=== PATIENT | female | born 1950 | race Asian ===

== ENCOUNTER 2025-04-04 14:55 | Emergency (ER) | payer MEDICARE, BC, SELFPAY ==
--- OUTSIDE RECORDS SUMMARY | 2025-04-04 14:57 | XMS_ITS | Clinical Summary ---
Author Organization [facility] Address [address] [facility] [place] [address] Care Team Providers Care Dining Manager Name Role Phone No Ref-Primary, Physician Primary Care Provider Allergies Active Allergy Reactions Criticality Noted Date Comments No Clinical Screening - Other Allergy 07/13/2017 Chemical fragrances= sneezing, throat closes Metal causes rashes Medications Zolpidem Tartrate (AMBIEN PO) Take 5 mg by mouth nightly as needed for sleep (0.5 x 10 mg = 5 mg dose) Active Acetaminophen (TYLENOL PO) Take 325 mg by mouth daily as needed for mild pain or fever Active ASPIRIN PO Take 650 mg by mouth nightly as needed for moderate pain Active hydrOXYzine (ATARAX) 10 MG tabletIndicatio ns:Status post left ankle joint replacement Take 1 tablet (10 mg) by mouth every 6 hours as needed for itching 30 tablet 7 Active enoxaparin (LOVENOX) 40 MG/0.4ML injectionIndica tions:Status post left ankle joint replacement Inject 0.4 mLs (40 mg) Subcutaneous every 24 hours 5 Syringe 7 Active ondansetron (ZOFRAN-ODT) 4 MG ODT tabIndications: Status post left ankle joint replacement Take 1 tablet (4 mg) by mouth every 6 hours as needed for nausea or vomiting 15 tablet 7 Active senna-docusate (SENOKOT-S;BUDDY COLACE) 8.6-50 MG per tabletIndicatio ns:Status post left ankle joint replacement Take 1-2 tablets by mouth 2 times daily 40 tablet 7 Active oxyCODONE-aceta minophen (PERCOCET) 5-325 MG per tabletIndicatio ns:Status post left ankle joint replacement Take 1-2 tablets by mouth every 4 hours as needed 40 tablet 7 Active Active Problems Problem Noted Date Diagnosed Date 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 Resolved Problems Problem Noted Date Diagnosed Date Resolved Date BEULAH JOINT PAIN-LOWER LEG 05/08/2005 Social History Tobacco Use Types Packs/Day Years Used Date Smoking Tobacco: Never Smokeless Tobacco: Never Alcohol Use Standard Drinks/Week Comments No 0 (1 standard drink = 0.6 oz pur e alcohol) Comments No Sex and Gender Information Value Date Recorded Sex Assigned at Not on file Legal Sex Female 4:39 AM STAINLESS STEEL FINISHER Gender Identity Not on file Sexual Orientation Not on file Last Filed Vital Signs Vital Sign Reading Time Taken Comments Blood Pressure 110/71 07/14/2017 7:30 AM STAINLESS STEEL FINISHER Pulse 67 07/13/2017 7:05 PM STAINLESS STEEL FINISHER Temperature 36.8 C (98.3 F) 07/14/2017 7:30 AM STAINLESS STEEL FINISHER Respiratory Rate 16 07/14/2017 7:30 AM STAINLESS STEEL FINISHER Oxygen Saturation 92% 07/14/2017 7:30 AM STAINLESS STEEL FINISHER Inhaled Oxygen Concentration - - Weight 65.2 kg (143 lb 12.8 oz) 07/13/2017 7:45 AM STAINLESS STEEL FINISHER Height 154.9 cm (5' 1) 07/13/2017 7:45 AM STAINLESS STEEL FINISHER Body Mass Index 27.17 07/13/2017 7:45 AM STAINLESS STEEL FINISHER Plan of Treatment Not on file Medical Devices Implanted Type Area Transaction Coordinator Device Identifier Shelf Expiration Date Model / Serial / Lot Imp Comp Tornier Talar Ankle Size 1 Lt [id number] Implanted:Qty: 1 on 07/13/2017 by Efra Encinas MD at [facility] [employer] Joint Component/ Insert Left: Ankle [employer] 12/16/2020 [id number] / [id number] / Imp Insert Tornier Tibial Ankle Base Size 1 [id number] Implanted:Qty: 1 on 07/13/2017 by Efra Encinas MD at [facility] [employer]/ Insert Left: Ankle [employer] 06/25/2021 [id number] / [id number] / Imp Insert Tornier Tibial Ankle Size 1x8mm Lt [id number] Implanted:Qty: 1 on 07/13/2017 by Efra Encinas MD at [facility] [employer] Joint Component/ Insert Left: Ankle [employer] 06/25/2019 [id number] / [id number] / [place] [address] [address] [address] MEDICARE MEDICARE Advance Directives For more information, please contact: [phone] Documents on File Type Date Recorded Patient Soil Sampler Expl anation Advance Directives and Living Will 07/31/2017 8:44 AM Health Care Directiv e 07/31/2010 * Full Code (Latest Code Status on File) Date Activated Date Inactivated Comments 07/13/2017 11:11 AM 07/14/2017 2:31 PM Care Teams Dining Manager Relationship Specialty Start Date End Date No Ref-Primary, Physician PCP - General 07/13/17
--- OUTSIDE RECORDS SUMMARY | 2025-04-04 14:57 | XMS_ITS | Clinical Summary ---
Author Organization [facility] Address [address] [place] [address] Care Team Providers Care Retail Support Associate Name Role Phone Other-None Unavailable Unavailable James Tracey Unavailable Sully Mcrae DO Primary Care Provider [phone] Allergies Active Allergy Reactions Criticality Noted Date Comments Bee Venom Protein (Honey Bee) Anaphylaxis High 07/30/2023 Perfume Headache 09/27/2021 Chemical fragrances- headaches and shortness of breath, anaphylaxis Venom-Wasp Anaphylaxis High 07/30/2023 Medications aspirin (ECOTRIN) 81 mg enteric coated tablet Take 1 tablet by mouth once daily with a meal. 0 06/30/20 19 Active inhalational spacing deviceIndications: Mild intermittent reactive airway disease without complication (HC) For home use. 1 Each 02/19/20 21 Active FLUTICASONE PROPIONATE NASL Acti ve EPINEPHrine (EPIPEN) 0.3 mg/0.3 mL auto-injectorIndic ations:Angioedema, sequela INJECT 0.3 MG INTRAMUSCULAR ONE TIME FOR 1 DOSE. 2 Each 08/09/19 25 Active albuterol HFA (Ventolin HFA) 90 mcg/actuation inhalerIndications :Mild intermittent asthma without complication (HC) Inhale 2 Puffs by mouth 4 times daily if needed for Shortness Of Breath. 1 Each 3 08/09/19 25 Active atorvastatin (LIPITOR) 40 mg tabletIndications: Hyperlipidemia, unspecified hyperlipidemia type Take 1 Tablet (40 mg) by mouth at bedtime. 90 Tablet 3 08/09/19 25 Active fexofenadine (DENISHA) 180 mg tabletIndications: Mild persistent asthma without complication (HC) Take 180 mg by mouth once daily. 90 Tablet 3 08/09/19 25 Active fluticasone furoate (ARNUITY ELLIPTA) 200 mcg/actuation inhalerIndications :Mild intermittent asthma without complication (HC) Inhale 1 Puff by mouth once daily. 90 Each 3 08/25/19 25 Active acyclovir 200 mg capsule TAKE 1 CAPSULE (200 MG) BY MOUTH FIVE TIMES A DAY FOR 5 DAYS. 12/07/19 25 Active oxyCODONE 5 mg immediate release tablet TAKE ONE TABLET BY MOUTH EVERY 4-6 HOURS NEEDED FOR BREAKTHROUGH PAIN 12/21/19 25 Active polyethylene glycoL 17 gram/scoop powder MIX 17GMS IN WATER TAKE BY MOUTH DAILY, START ON POD1, HOLD FOR LOOSE STOOLS 12/13/19 25 Active Senna 8.6 mg tablet TAKE ONE TABLET BY MOUTH DAILY TO PREVENT POST-OPERATIVE OPIOID CONSTIPATION 12/21/19 25 Active hydrOXYzine HCL 25 mg tablet TAKE 1 TO 2 TABLETS BY MOUTH EVERY 4 TO 6 HOURS NEEDED FOR PAIN CONTROL 12/29/19 25 Active Mapap 500 mg capsule TAKE 2 CAPS (1000MG) BY MOUTH EVERY SIX HOURS 12/13/19 25 Active cholecalciferol (Vitamin D) 1,000 unit capsule Take 1,000 units by mouth once daily. Active calcium carb,cit-mag cit,ox-D3 300 mg-150 mg- 400 unit tab Take by mouth. Activ e zolpidem (AMBIEN) 5 mg tabletIndications: Insomnia, unspecified type TAKE 1 TABLET (5 MG) BY MOUTH AT BEDTIME IF NEEDED FOR SLEEP. 30 Tablet 2 03/03/20 25 Active Active Problems Problem Noted Date Diagnosed Date Thyroid nodule 04/26/2021 Overview (04/26/2021): Follow up US 03/2021: MPRESSION: 1.8 cm TR 3 nodule lower pole left thyroid lobe. Follow-up at 1, 3 and 5 year intervals suggested. 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 Consider recheck 5 years. Madelin Oliva M.D. 05/02/2014 9:10 PM Colon polyp 06/27/2011 Overview (06/15/2023): Colonoscopy 06/2011 polyp repeat in 5 years Colonoscopy 12/2016 polyps repeat in 5 years Colonoscopy 05/2023 TA, repeat in 7 years Vitamin D deficiency 05/12/2011 Viral warts, unspecified 11/18/2010 Mole of skin 12/21/2009 Overview (12/21/2009): 4x6 pigmented lesion right shoulder Encounters Date Type Department Care Team Description 03/02/2025 Refill [facility] [address] [place] [address] Sulyl Mcrae DO Refill Request (Zolpidem) 01/09/2025 1:45 PM CDT Office Visit [address] [phone] Carolynn Delacruz, PHOTOLETTERING MACHINE OPERATOR Consult 01/09/2025 Travel 01/04/2025 Travel from Last 3 Months Immunizations Immunization Administration Dates Next Due AMB Influenza, IIV4 PF (=>6 mos Flulaval,Fluzone Fluarix)(Flu Clinic Only) 04/20/2014 Amb Influenza, Inact (High-d ose) (Flu Clinic Only) 06/06/2016 COVID-19 VACCINE SPIKEVAX (M ODERNA 50MCG/0.5ML) 12YO+ PFS 11/15/2024 COVID-19 vaccine (Moderna 50 mcg/0.5mL) 12YO+ BIVALENT PF, MDV 04/16/2022 COVID-19 vaccine (Pfizer-Bio NTech 30mcg/0.3mL) PF, MDV 05/15/2021,09/15/2020,08/23/2020 Influenza Virus, Unspecified 05/26/2019 Influenza, High-dose Inactivated 04/25/2024,04/26 Influenza, High-dose Quadriv alent Inactivated 06/03/2023,05/27/2023,05/22/2022,04/17,05/03/2020 Influenza, IIV3 (Age >=3 years) 08/04/2013,05/07,05/09/2011 Influenza, Inactivated IIV3 (Age 65+ Years) Preserv Free 06/11/2018,05/11/2017 Pneumococcal Poly,23-Valent (Pneumovax) 12/10/2016 Pneumococcal conj 13-Valent (Prevnar 13) 10/26/2015 RSV, Recombinant ADJ Reconst ituted (Arexvy 120MCG/0.5mL) 06/03/2023 Tdap 05/03/2020,12/21/2009 Zoster (Shingrix-RZV, recombinant) 06/17/2019, Zoster (Zostavax-ZVL, live) 05/09/2011 Family History Medical History Relation Name Comments Diabetes Brother Hypertension Brother Diabetes Father Heart Disease Father Hypertension Father Other Father meningioma Cancer-breast Mother Hypertension Mother Multiple myeloma Sister Cancer-colon No Family History Cancer-ovarian No Family History Relation Name Status Comments Brother Father (Age 87) Mother (Age 95) Sister Social History Tobacco Use Types Packs/Day Years Used Date Smoking Tobacco: Never Smokeless Tobacco: Never Tobacco Cessation:Counseling Given: Yes Alcohol Use Standard Drinks/Week Comments Yes 0 (1 standard drink = 0.6 oz pur e alcohol) once every few weeks PHQ-2 Answer Date Recorded PHQ-2 TOTAL SCORE 0 08/09/2024 Social Connections Answer Date Recorded Do you often feel lonely or isolated from those around you? 0 08/08/2024 Alcohol Use Answer Date Recorded How often do you have a drink containing alcohol ? 2 06/03/2022 How many drinks containing a lcohol do you have on a typical day when you are drinking? 0 06/03/2022 How often do you have five or more drinks on one occasion? 0 06/03/2022 Financial Resource Strain Answer Date R ecorded Difficulty of Paying Living Expenses 3 08/08/2024 Difficulty of Paying Living Expenses Not on file 08/08/2024 Food Insecurity Answer Date Recorded Do you worry your food will run out before you are able to buy more? 1 08/08/2024 Transportation Needs Answer Date Record ed Does lack of transportation keep you from medica l appointments? 1 08/08/2024 Does lack of transportation keep you from work, meetings or getting things that you need? 1 08/08/2024 Housing Stability Answer Date Recorded What is your housing situation today? 1 08/08/2024 Utilities Answer Date Recorded Do you have trouble paying f or utilities (for example, heat, electricity, water, phone)? 1 08/08/2024 Comments No Sex and Gender Information Value Date Recorded Sex Assigned at Not on file Legal Sex Female 6:11 AM JET BLADE POLISHER Gender Identity Not on file Sexual Orientation Not on file Obstetrics History Para Term AB IAB SAB Ectopic Multiple Livin g Live Births 0 0 0 0 0 0 0 0 0 0 Last Filed Vital Signs Vital Sign Reading Time Taken Comments Blood Pressure 110/60 01/09/2025 1:48 PM CDT Pulse 55 01/09/2025 1:48 PM CDT Temperature 36.6 C (97.9 F) 01/09/2025 1:48 PM CDT Respiratory Rate 18 01/09/2025 1:48 PM CDT Oxygen Saturation 95% 01/09/2025 1:48 PM CDT Inhaled Oxygen Concentration - - Weight 60.2 kg (132 lb 11.2 oz) 11/24/2024 1:08 PM CDT Height 152 cm (4' 11.84) 11/24/2024 1:08 PM CDT Body Mass Index 26.05 11/24/2024 1:08 PM CDT Plan of Treatment Upcoming Encounters Date Type Department Care Team (Late st Contact Info) Description 05/03/2025 10:15 AM CDT Orders Only [facility] [address] [place] [address] [place], [place] 05/17/2025 10:45 AM CDT Office Visit [facility] [address] [place] [address] Carolynn Delacruz, PHOTOLETTERING MACHINE OPERATOR [address] [place] [address] Health Maintenance Due Date Last Done Comments Influenza Vaccine (#1) 2025 4, 05/26/2019, 06/11/2018, Additional history exists Medicare Wellness for age 65+ 08/10/2025 08/09/2024, 07/30/2023, 06/03/2022, Additional history exists Depression screening for age 12+ 08/11/2025 08/11/2024, 08/09/2024, 07/30/2023, Additional history exists BMI (ht and wt on same day) for age 18+ 11/24/2025 11/24/2024, 08/09/2024, 07/30/2023, Additional history exists Lipids for age 45-75 08/09/2029 08/09/2024, 06/03/2022, 10/18/2021, Additional history exists Tetanus booster 05/03/2030 05/03/2020, 12/21/2009 Colonoscopy through age 75 06/11/203006/11, 06/11/2023, 06/11/2023, Additional history exists Hepatitis C screening for age 18-79 Completed 05/03/2014 Pneumococcal series for age 50+ Completed 12/10/2016, 10/26/2015 Zoster (shingles) series for age 50+ Completed 06/17/2019, 12/22/2018, 05/09/2011 DEXA/DXA scan for age 65+ Completed 2021, 12/16/2016, 05/29/2011 RSV vaccine for adults or Completed 06/03/2023 COVID-19 vaccine series Completed 11/16/19, 04/25/2024, 12/24/2023, Additional history exists Hepatitis B series for 19+ Aged Out N o longer eligible based on patient's age to complete this topic Procedures Procedure Name Priority Date/Time Associated Diagnosis Comments LIPID PANEL W REFLEX MEASURED LDL Routine 08/09/2024 9:07 AM JET BLADE POLISHER Hyperlipidemia, unspecified hyperlipidemia type COLONOSCOPY 06/11/2023 8:44 AM JET BLADE POLISHER XR DXA BONE DENSITY 2 SITES AXIAL Routine 07/09/2022 11:01 AM JET BLADE POLISHER Osteopenia, unspecified location Other specified disorders of bone density and structure, multiple sites ANTI HCV Routine 05/03/2014 2:07 PM CDT Need for hepatitis C screening test from Last 3 Months or Most Recently Relevant to Health Maintenance Results * LIPID PANEL W REFLEX MEASURED LDL (08/09/2024 9:07 AM JET BLADE POLISHER) CHOLESTEROL, TOTAL 152 <200 mg/dL [facility] HDL CHOLESTEROL 52 > OR = 50 mg/dL [facility] TRIGLYCERIDES 121 <150 mg/dL [facility] LDL-CHOLESTEROL 78 mg/dL (calc) [facility] Comment: Reference range: <100 Desirable range <100 mg/dL for primary prevention; <70 mg/dL for patients with CHD or diabetic patients with > or = 2 CHD risk factors. LDL-C is now calculated using the Mariah calculation, which is a validated novel method providing better accuracy than the Friedewald equation in the estimation of LDL-C. Watson KATZ et al. CT. 2013;310(19): 1810-1766 (http://education.Layer3 TV/faq/GKA839) CHOL/HDLC RATIO 2.9 <5.0 (calc) [facility] NON HDL CHOLESTEROL 100 <130 mg/dL (calc) [facility] Comment: For patients with diabetes plus 1 major ASCVD risk factor, treating to a non-HDL-C goal of <100 mg/dL (LDL-C of <70 mg/dL) is considered a therapeutic option. Blood BLOOD SPECIMEN / Unknown 08/09/2024 9:07 AM JET BLADE POLISHER 08/09/2024 9:07 AM JET BLADE POLISHER Sully Mcrae DO CHEMISTRY Final Resu lt [facility] [address] [place] [address], [facility] [address] [place] [address] * COLONOSCOPY (06/11/2023 8:44 AM JET BLADE POLISHER) 06/11/2023 8:44 AM JET BLADE POLISHER Narrative Transcriptions Watson Dexter MD - 06/11/2023 9:48 AM CST Patient Name: Bharti Carpio Procedure Date: 06/11/2023 Gender: Female Date of : 1950 Admit Type: Outpatient Procedure: Colonoscopy Proceduralist: Watson Dexter MD , iMndy Kelly (Nurse), Lizzy Higgins (Nurse) Indications/Pre-Op Diagnosis: High risk colon cancer surveillance:Personal history of adenoma less than 10 mm in size, Last colonoscopy: December 2016 Medications: Fentanyl 100 micrograms IV, Midazolam 2 mgIV, The level of sedation administered wasmoderate Procedure Description: The patient had risks, benefits and alternatives explained to andgave informed consent. The patient had a stable cardiopulmonary status and judged an adequate candidate for conscious sedation. The endoscope PCF-H190L [id number] was passed through the anus andadvanced to the cecum, identified by appendiceal orifice and ileocecal valve.The colonoscopy was performed without difficulty. The patient toleratedthe procedure well. The quality of the bowel preparation was good. Anatomical landmarks were photographed. Complications: No immediate complications. Estimated Blood Loss & Specimen: Estimated blood loss: none. Specimen collected - Yes and sent to Laboratory Findings: The perianal and digital rectal examinations were normal. A 2 mm polyp was found in the transverse colon. The polyp wassessile. The polyp was removed with a cold biopsy forceps. Resection and retrieval were complete. A 3 mm polyp was found in the transverse colon. The polyp wassessile. The polyp was removed with a cold snare. Resection and retrieval were complete. Scattered small-mouthed diverticula were found in the sigmoidcolon. The exam was otherwise without abnormality. Impressions/Post-Op Diagnosis: - One 2 mm polyp in the transverse colon, removed with a cold biopsy forceps. Resected and retrieved. - One 3 mm polyp in the transverse colon, removed with a cold snare. Resected and retrieved. - Diverticulosis in the sigmoid colon. - The examination was otherwise normal. Recommendation: - Patient has a contact number available for emergencies. The signsand symptoms of potential delayed complications were discussed with the patient. Return to normal activities tomorrow. Written discharge instructions were provided to the patient. - Resume previous diet. - Continue present medications. - Await pathology results. - Repeat colonoscopy is recommended. The colonoscopy date will be determined after pathology results from today's exam become available for review. Moderate Sedation: A time out was performed before the procedure. Moderate (conscious) sedation was administered by the endoscopy nurse and supervised bythe endoscopist. The following parameters were monitored: oxygensaturation, heart rate, blood pressure, EKG, CO2, respiratory rate, adequacy of pulmonary ventilation and reponse to care. Please refer to the patient's medical record flowsheets and nursing notes for moderate sedation details. Total physician intraservice time was 19 minutes. Watson Dexter MD 06/11/2023 9:47:59 AM This report has been signed electronically. Note Initiated On: 06/11/2023 8:44 AM Procedure Code(s): --- Professional --- 53148, Colonoscopy, flexible; with removalof tumor(s), polyp(s), or other lesion(s) bysnare technique 12007, 59, Colonoscopy, flexible; withbiopsy, single or multiple Diagnosis Code(s): --- Professional --- Z86.010, Personal history of colonicpolyps D12.3, Benign neoplasm of transverse colon (hepatic flexure or splenic flexure) K57.30, Diverticulosis of large intestine without perforation or abscess withoutbleeding CPT copyright 2021 [employer]. All rights reserved. The codes documented in this report are preliminary and upon collection clerk reviewmay be revised to meet current compliance requirements. Scope In: 9:11:44 AM Scope Withdrawal Time 0 hours 13 minutes 9 seconds Scope Out: 9:29:40 AM us Watson Dexter MD PROCEDURE ORD Final Res ult * (ABNORMAL) XR DXA BONE DENSITY 2 SITES AXIAL (07/09/2022 11:01 AM JET BLADE POLISHER) Anatomical Region Laterality Modality Spine, HIPS, HIPL, HIPR Other Impressions 07/09/2022 4:02 PM JET BLADE POLISHER Osteopenia. RECOMMENDATIONS: The National Osteoporosis Foundation recommends pharmacologic treatment for patients with T-scores of -2.5 or less, patients with prior history of fragility fractures, or patients with 10-year probability of greater than 3% at hips or greater than 20% of suffering major osteoporotic fractures. Recommend continued optimization of calcium and vitamin D intake through dietary means and/or supplementation and regular exercise. Repeat scan recommended in 3-5 years. Margaret Giraldo PA-C [facility] 07/09/2022 Narrative 07/09/2022 4:02 PM JET BLADE POLISHER For Patients: Results are automatically released to your [facility] account once available, in compliance with federal regulations. This means that you may see your results before your provider has had a chance to review them. Please allow 2-3 business days for your provider to comment on the results. XR DXA Bone Mineral Density (BMD) EXAM LOCATION: [address] [address] PATIENT NAME: Bharti Carpio DATE OF : 1950 EXAM DATE: 07/09/2022 REQUESTING PROVIDER: Sully Mcrae DO GENDER AT : female HEIGHT: 5' 0.12 (06/03/2022) WEIGHT: 137 lb (06/03/2022) MENOPAUSAL STATUS: Postmenopausal RACE/ETHNICITY: RISK FACTORS: Race and Family History of Osteoporosis CURRENT MEDICATION FOR BONE LOSS: NONE INDICATION: Follow-up of existing osteopenia COMPARISON DATE(S): 2016 DXA scans are compared to prior studies for a patient only when the two (or more) studies were performed on the same scanner. It is not possible to compare data generated on one scanner to data from another because there are not standards in DXA equipment. This applies even if the two scanners are made by the same set rider. PROCEDURE: Dual-energy x-ray absorptiometry performed with routine technique. Reporting is completed in the form of a T-score. The T-score represents the standard deviation from peak bone mass based on young healthy adult. A Z-score is used for diagnosis in premenopausal women, and for men under the age of 50. FINDINGS: RESULT LUMBAR SPINE L1 - L3 BMD: 1.103 g/cm2 T-Score: - 0.6 Z-Score: + 1.2 Change from prior in 2017: Increase 1.5%. RESULTS FEMUR Left femoral neck BMD: 0.776 g/cm2 T-Score: - 1.9 Z-Score: + 0.0 Change from prior in 2017: Decrease 6.1%. Right femoral neck BMD: 0.813 g/cm2 T-Score: - 1.6 Z-Score: + 0.2 Change from prior in 2017: Decrease 4.7%. Left hip BMD: 0.813 g/cm2 T-Score: - 1.5 Z-Score: + 0.1 Change from prior in 2017: Decrease 2.4%. Right hip BMD: 0.870 g/cm2 T-Score: - 1.1 Z-Score: + 0.6 Change from prior in 2017: Decrease 4.2%. WHO criteria: Normal: T-score at or above -1 SD Osteopenia: T-score between -1.1 and -2.4 SD Osteoporosis: T-score at or below -2.5 SD FRAX RISK CALCULATION (USED FOR OSTEOPENIA ONLY): 10-year probability of major osteoporotic fracture: 6.8%. 10-year probability of hip fracture: 1.4%. Sully Mcrae DO DEXA Final Resu lt * ANTI HCV [86470.2] (05/03/2014 2:07 PM CDT) HEPATITIS C ANTIBODY Non-Reacti ve Non-Reacti ve 05/03/2014 8:00 PM CDT [facility] Blood specimen (specimen) BLOOD SPECIMEN / Unknown Venipuncture / Unknown 05/03/2014 2:07 PM CDT 05/03/2014 2:07 PM CDT [facility] 05/03/2014 8:00 PM CDT Antibodies to HCV not detected; does not exclude the possibility of exposure to HCV. Madelin Oliva SEND OUTS Final R esult [facility] [address] [place] [address], [place] from Last 3 Months or Most Recently Relevant to Health Maintenance Insurance MEDICARE PART B HB ONLY [facility] MEDICARE PB ONLY MEDICARE PART A HB ONLY Advance Directives Documents on File Type Date Recorded Patient Marketing Communications Leader Expl anation Healthcare Directive 07/07/2017 12:12 PM [facility], 07/31/10 Healthcare Directive 12/22/2012 11:55 AM [facility], 07/31/2010 Care Teams Retail Support Associate Relationship Specialty Start Date End Date Sully Mcrae DO [address] [place] [address] PCP - General Family Practice 12/10/18 Other-None . 10/26/15 James Tracey [address] [place] [id number] Contract Serviceman 10/26/15
[2025-04-04 15:06] VITALS: BP 120/79; PULSE 65; RESP 18; TEMP 36.4; O2SAT 96; BMI 26.2
--- NOTE | 2025-04-04 15:14 | ED.CHESTPAIN ---
HPI - Chest Pain General Time Seen by Provider: 15:14 <Audra Tao MD - Last Filed: 04/04/25 16:20> Date Seen: 04/04/25 <Audra Tao MD - Last Filed: 04/04/25 16:20> Chief Complaint: Chest Pain <Audra Tao MD - Last Filed: 04/04/25 16:20> Stated Complaint: SOB, jaw pain, chest pain, nausea <Audra Tao MD - Last Filed: 04/04/25 16:20> Time Seen by Provider: 04/04/25 15:14 <Audra Tao MD - Last Filed: 04/04/25 16:20> Source: patient <Audra Tao MD - Last Filed: 04/04/25 16:20> Mode of arrival: ambulatory <Audra Tao MD - Last Filed: 04/04/25 16:20> Limitations: no limitations <Audra Tao MD - Last Filed: 04/04/25 16:20> History of Present Illness HPI narrative: Bharti is a very pleasant 75-year-old female with history of right ankle joint replacement, hyperlipidemia who takes an aspirin a day because of an elevated calcium score comes to the emergency room for after having experienced 20 minutes of persistent chest pain. And notes that 2 days ago she started experiencing some cold symptoms with sneezing and a cough. She notes no shortness of breath with that. She states that she has not yet had a chance to test for COVID but does not know of any ill contacts. She states that while working at home not doing very intense activity she had the onset of upper chest pain that radiated into her jaw and the back of the neck. She states this occurred at approximately 1400 hours. She had experienced some shortness of breath and nausea with this as well as diaphoresis. She notes that she took 4 baby aspirin and sat down. She notes that the discomfort lasted for approximately 20 minutes. She notes that this time she still has some slight pressure in her jaw and a mild headache and that her chest pressure is now a gassy type feeling. She denies any vomiting or diarrhea. She denies any abdominal pain at this time. In the past she had an event where she had significant pain in her back. She underwent a chemical stress test and passed. I do not have access to those notes. She did not see a cell coverer. Patient does have risk factors including hyperlipidemia. An elevated calcium score. She denies history of hypertension she does not smoke and alcohol use is minimal. Bharti also denies calf tenderness, history of DVT, periods of inactivity, extended car rides or recent plane trips. <Audra Tao MD - Last Filed: 04/04/25 16:20> Related Data Home Medications: Home Medications ?Medication ?Instructions ?Recorded ?Confirmed acetaminophen 500 mg capsule mg PO 12/23/24 12/23/24 (Mapap (acetaminophen)) aspirin 81 mg tablet,delayed 81 mg PO BID 12/23/24 12/23/24 release atorvastatin 40 mg tablet 40 mg PO QPM 12/23/24 12/23/24 <Audra Tao MD - Last Filed: 04/04/25 16:20> Allergies/Adverse Reactions: Allergies Allergy/AdvReac Type Severity Reaction Status Date / Time wasps Allergy Mild throat Uncoded 12/23/24 16:19 swelling <Audra Tao MD - Last Filed: 04/04/25 16:20> Review of Systems Status of ROS Reports: 10 or more systems reviewed and unremarkable except as noted in History and below <Audra Tao MD - Last Filed: 04/04/25 16:20> Const Reports: fatigue; Denies: fever or chills <Audra Tao MD - Last Filed: 04/04/25 16:20> Eyes Denies: change in vision <Audra Tao MD - Last Filed: 04/04/25 16:20> ENMT Reports: neck pain (Resolved); Denies: throat pain, nasal discharge or nasal congestion <Audra aTo MD - Last Filed: 04/04/25 16:20> Cardio Reports: chest pain, swelling of feet/ankles (Right ankle) and shortness of breath with exertion (Resolved); Denies: lightheadedness <Audra Tao MD - Last Filed: 04/04/25 16:20> Resp Reports: shortness of breath (Resolved) and cough; Denies: wheezing <Audra Tao MD - Last Filed: 04/04/25 16:20> GI Reports: nausea; Denies: abdominal pain, vomiting, diarrhea or constipation <Audra Tao MD - Last Filed: 04/04/25 16:20> Denies: painful urination or urinary frequency <Audra Tao MD - Last Filed: 04/04/25 16:20> Musculo Reports: neck pain (Resolved); Denies: back pain, extremity pain or extremity swelling <Audra Tao MD - Last Filed: 04/04/25 16:20> Integ/Breast Denies: rash <Audra Tao MD - Last Filed: 04/04/25 16:20> Neuro Reports: headache; Denies: numbness in extremities <Audra Tao MD - Last Filed: 04/04/25 16:20> Endo Reports: fatigue <Audra Tao MD - Last Filed: 04/04/25 16:20> Allergy/Immuno Denies: wheezing <Audra Tao MD - Last Filed: 04/04/25 16:20> [facility] Medical History: Medical History Hyperlipidemia ?E78.5 - Hyperlipidemia, unspecified (ICD-10) <Audra Tao MD - Last Filed: 04/04/25 16:20> Surgical History: Surgical History History of left ankle joint replacement ?Z96.662 - Presence of left artificial ankle joint (ICD-10) <Audra Tao MD - Last Filed: 04/04/25 16:20> Social History: Social History Smoking Status: Never smoker How often do you have a drink containing alcohol: monthly or less AUDIT-C Alcohol total score: 1 Non-prescribed substance use: denies use <Audra Tao MD - Last Filed: 04/04/25 16:20> Exam Narrative Exam Narrative: Patient is alert and oriented. Very well-spoken woman in no acute distress. EOM is full. Neck is supple with no lymphadenopathy. She has a mask in place. Mentation and speech normal. Heart with a regular rate and rhythm. I do hear a 2/6 systolic murmur. No rub or-null systole is noted. Lungs are clear bilaterally. Abdomen is soft nontender with. Palpation over upper chest does not reproduce the discomfort. Lower extremities without any calf tenderness swelling. She does have localized swelling to her right ankle. Moving all extremities. <Audra Tao MD - Last Filed: 04/04/25 16:20> Const Vital Signs, click to edit/add: Vital Signs - 24 hr 04/04/25 15:06 04/04/25 17:03 Temperature 97.6 F Pulse Rate [Pulse Oximeter] 65 71 Respiratory Rate 18 16 Blood Pressure [Right Upper Arm] 120/79 132/78 Pulse Oximetry 96 97 Oxygen Delivery Method Room Air Room Air <Audra Tao MD - Last Filed: 04/04/25 16:20> Vital Signs - 24 hr 04/04/25 15:06 04/04/25 17:03 Temperature 97.6 F Pulse Rate [Pulse Oximeter] 65 71 Respiratory Rate 18 16 Blood Pressure [Right Upper Arm] 120/79 132/78 Pulse Oximetry 96 97 Oxygen Delivery Method Room Air Room Air <Delroy Huynh MD - Last Filed: 04/05/25 09:16> Documenting provider has reviewed patient's vital signs: yes <Audra Tao MD - Last Filed: 04/04/25 16:20> Course Course ED Course: Differential diagnosis includes but is not limited to COVID, URI, acute coronary syndrome, angina, esophageal spasm, pneumothorax, aortic dissection. Will place IV. Patient is already received aspirin at home. This time she is feeling much improved. Vital signs are reassuring. Recommend EKG, troponin, court recording monitor, oximetry. Recommend chest x-ray, CBC, comprehensive panel, troponin, D-dimer. Patient is in agreement with this plan. Since the onset of chest pain was at 1400 hours, patient has a very strong story in regards to underlying cardiac cause I do feel strongly that the 2nd troponin if 1st is normal will need to be at 1800 hours allowing 4 hours between the the symptoms and 2nd test. <Audra Tao MD - Last Filed: 04/04/25 16:20> Reevaluation(s) Reevaluation #1: This case signed out to my colleague Dr. Huynh <Audra Tao MD - Last Filed: 04/04/25 16:20> Vital Signs Vital signs: Initial Vital Signs Temperature 97.6 F 04/04/25 15:06 Temperature Source Temporal Artery Scan 04/04/25 15:06 Pulse Rate 65 04/04/25 15:06 Respiratory Rate 18 04/04/25 15:06 Blood Pressure 120/79 04/04/25 15:06 Blood Pressure Mean 92 04/04/25 15:06 Blood Pressure Position Sitting 04/04/25 15:06 Pulse Oximetry 96 04/04/25 15:06 Oxygen Delivery Method Room Air 04/04/25 15:06 Vital Signs Temperature 97.6 F 04/04/25 15:06 Pulse Rate 65 04/04/25 15:06 Respiratory Rate 18 04/04/25 15:06 Blood Pressure 120/79 04/04/25 15:06 Pulse Oximetry 96 04/04/25 15:06 Oxygen Delivery Method Room Air 04/04/25 15:06 Temperature 97.6 F 04/04/25 15:06 Pulse Rate 71 04/04/25 17:03 Respiratory Rate 16 04/04/25 17:03 Blood Pressure 132/78 04/04/25 17:03 Pulse Oximetry 97 04/04/25 17:03 Oxygen Delivery Method Room Air 04/04/25 17:03 <Audra Tao MD - Last Filed: 04/04/25 16:20> Initial Vital Signs Temperature 97.6 F 04/04/25 15:06 Temperature Source Temporal Artery Scan 04/04/25 15:06 Pulse Rate 65 04/04/25 15:06 Respiratory Rate 18 04/04/25 15:06 Blood Pressure 120/79 04/04/25 15:06 Blood Pressure Mean 92 04/04/25 15:06 Blood Pressure Position Sitting 04/04/25 15:06 Pulse Oximetry 96 04/04/25 15:06 Oxygen Delivery Method Room Air 04/04/25 15:06 Vital Signs Temperature 97.6 F 04/04/25 15:06 Pulse Rate 65 04/04/25 15:06 Respiratory Rate 18 04/04/25 15:06 Blood Pressure 120/79 04/04/25 15:06 Pulse Oximetry 96 04/04/25 15:06 Oxygen Delivery Method Room Air 04/04/25 15:06 Temperature 97.6 F 04/04/25 15:06 Pulse Rate 71 04/04/25 17:03 Respiratory Rate 16 04/04/25 17:03 Blood Pressure 132/78 04/04/25 17:03 Pulse Oximetry 97 04/04/25 17:03 Oxygen Delivery Method Room Air 04/04/25 17:03 <Delroy Huynh MD - Last Filed: 04/05/25 09:16> MDM - Chest Pain MDM Narrative Medical decision making narrative: 1. Chest pain -almost entirely resolved. Story is worrisome for underlying cardiac cause. Labs, chest x-ray pending. EKG reassuring. 2. Cold-like symptoms -swab pending This case signed out to my colleague for further review <Audra Tao MD - Last Filed: 04/04/25 16:20> 1. Chest pain -almost entirely resolved. Story is worrisome for underlying cardiac cause. Labs, chest x-ray pending. EKG reassuring. 2. Cold-like symptoms -swab pending This case signed out to my colleague for further review Amina -- I inherited this patient at change of shift. Pending repeat troponin. One-view chest x-ray is WNL by my independent review. Labs are generally reassuring including a D-dimer that would be negative considering age adjustment. COVID influenza and RSV is also normal. On reassessment she is pain free with regard to her chest. Does sound congested in the nasopharynx. Without persistent pleuritic discomfort and absence of wheeze on initial exam, I am not sure steroid benefit. Troponin was redrawn at that time of reassessment which is negative. Does has a history passing chemical stress tests. Does appear inclined to discuss this further in follow-up. See patient discharge for further discussion I am relieved to report that your evaluation here today is reassuring. Have not found any evidence of heart injury. Would ask you to follow-up in primary care discuss this visit today and possibly schedule a repeat stress test for further cardiac evaluation. Return for persistent recurrence or worsening of symptoms as experienced today. <Delroy Huynh MD - Last Filed: 04/05/25 09:16> Medical Records Data Attestation: I reviewed the patient's medical records. <Audra Tao MD - Last Filed: 04/04/25 16:20> Lab Data Attestation: I reviewed the patient's lab results. <Audra Tao MD - Last Filed: 04/04/25 16:20> Labs: Lab Results 04/04/25 04/04/25 Range/Units 15:33 18:05 WBC 8.97 (4.50-11.00) K/uL RBC 4.28 (4.00-5.20) m/uL Hgb 12.9 (12.0-16.0) gm/dL Hct 40.2 (33.0-51.0) % MCV 94 (80-100) fL MCH 30 (26-34) pg MCHC 32 (32-36) gm/dL RDW Coeff of Micaela 12.9 (11.5-15.5) % Plt Count 266 (140-440) K/uL Neut % (Auto) 63.7 (42.0-72.0) % Lymph % (Auto) 20.1 (20-44) % [place] % (Auto) 6.7 (0.0-11.0) % Eos % (Auto) 8.6 H (0.0-7.0) % Baso % (Auto) 0.7 (0.0-3.0) % Neut # (Auto) 5.72 (1.7-7.0) K/uL Lymph # (Auto) 1.80 (0.90-2.90) K/uL [place] # (Auto) 0.60 (0.00-0.90) K/UL Eos # (Auto) 0.80 H (0.00-0.50) K/uL Baso # (Auto) 0.06 (0.00-0.30) K/uL Abs Immat Gran (auto) 0.02 (0.00-0.30) K/uL Imm/Tot Granulo (auto) 0.2 % D-Dimer Quant (PE/DVT) 0.56 H (0.00-0.50) ug/ml Sodium 136 (135-149) mmol/L Potassium 4.3 (3.6-5.1) mmol/L Chloride 103 (96-114) mmol/L Carbon Dioxide 29 (20-32) mmol/L Anion Gap 4 L (7-15) mEq/L BUN 15 (7-30) mg/dL Creatinine 0.9 (0.5-1.5) mg/dL Estimated Creat Clear 34.91 Estimated GFR 67 ml/min Glucose 108 (60-115) mg/dL Calcium 9.3 (8.4-10.6) mg/dL Magnesium 2.1 (1.5-2.6) mg/dL Total Bilirubin 0.2 (0.1-1.5) mg/dL AST 28 (12-35) U/L ALT 19 (4-35) U/L Alkaline Phosphatase 83 (40-150) U/L C-Reactive Protein < 0.5 L (0.5-1.0) mg/dL Total Protein 7.2 (6.0-8.3) g/dL Albumin 4.0 (3.3-5.0) g/dL SARS-CoV-2 (PCR) Negative SARS-CoV-2 (Negative) Influenza Type A (PCR) Negative PCR FLU A (Negative) Influenza Type B (PCR) Negative PCR FLU B (Negative) RSV (PCR) Negative PCR RSV (Negative) POC Troponin I 0.00 L 0.01 (0.01-0.04) ng/ml <Audra Tao MD - Last Filed: 04/04/25 16:20> Lab Results 04/04/25 04/04/25 Range/Units 15:33 18:05 WBC 8.97 (4.50-11.00) K/uL RBC 4.28 (4.00-5.20) m/uL Hgb 12.9 (12.0-16.0) gm/dL Hct 40.2 (33.0-51.0) % MCV 94 (80-100) fL MCH 30 (26-34) pg MCHC 32 (32-36) gm/dL RDW Coeff of Micaela 12.9 (11.5-15.5) % Plt Count 266 (140-440) K/uL Neut % (Auto) 63.7 (42.0-72.0) % Lymph % (Auto) 20.1 (20-44) % [place] % (Auto) 6.7 (0.0-11.0) % Eos % (Auto) 8.6 H (0.0-7.0) % Baso % (Auto) 0.7 (0.0-3.0) % Neut # (Auto) 5.72 (1.7-7.0) K/uL Lymph # (Auto) 1.80 (0.90-2.90) K/uL [place] # (Auto) 0.60 (0.00-0.90) K/UL Eos # (Auto) 0.80 H (0.00-0.50) K/uL Baso # (Auto) 0.06 (0.00-0.30) K/uL Abs Immat Gran (auto) 0.02 (0.00-0.30) K/uL Imm/Tot Granulo (auto) 0.2 % D-Dimer Quant (PE/DVT) 0.56 H (0.00-0.50) ug/ml Sodium 136 (135-149) mmol/L Potassium 4.3 (3.6-5.1) mmol/L Chloride 103 (96-114) mmol/L Carbon Dioxide 29 (20-32) mmol/L Anion Gap 4 L (7-15) mEq/L BUN 15 (7-30) mg/dL Creatinine 0.9 (0.5-1.5) mg/dL Estimated Creat Clear 34.91 Estimated GFR 67 ml/min Glucose 108 (60-115) mg/dL Calcium 9.3 (8.4-10.6) mg/dL Magnesium 2.1 (1.5-2.6) mg/dL Total Bilirubin 0.2 (0.1-1.5) mg/dL AST 28 (12-35) U/L ALT 19 (4-35) U/L Alkaline Phosphatase 83 (40-150) U/L C-Reactive Protein < 0.5 L (0.5-1.0) mg/dL Total Protein 7.2 (6.0-8.3) g/dL Albumin 4.0 (3.3-5.0) g/dL SARS-CoV-2 (PCR) Negative SARS-CoV-2 (Negative) Influenza Type A (PCR) Negative PCR FLU A (Negative) Influenza Type B (PCR) Negative PCR FLU B (Negative) RSV (PCR) Negative PCR RSV (Negative) POC Troponin I 0.00 L 0.01 (0.01-0.04) ng/ml <Delroy Huynh MD - Last Filed: 04/05/25 09:16> Imaging Data Chest x-ray: Attestation: I have reviewed the pertinent imaging results. <Audra Tao MD - Last Filed: 04/04/25 16:20> ECG Data Attestation: I personally reviewed and interpreted this ECG as follows: <Audra Tao MD - Last Filed: 04/04/25 16:20> ECG interpretation date: 04/04/25 <Audra Tao MD - Last Filed: 04/04/25 16:20> Interpretation: EKG by my read shows sinus rhythm at a rate of 60. I do not note any acute ST or T-wave changes. QT and IA intervals within normal limits <Audra Tao MD - Last Filed: 04/04/25 16:20> Discharge Plan Discharge Clinical Impression: Chest pain <Audra Tao MD - Last Filed: 04/04/25 16:20> Patient Disposition: Home w/ Parent or Adult <Audra Tao MD - Last Filed: 04/04/25 16:20> Condition: Improved <Audra Tao MD - Last Filed: 04/04/25 16:20> Additional Instructions: I am relieved to report that your evaluation here today is reassuring. Have not found any evidence of heart injury. Would ask you to follow-up in primary care discuss this visit today and possibly schedule a repeat stress test for further cardiac evaluation. Return for persistent recurrence or worsening of symptoms as experienced today. <Audra Tao MD - Last Filed: 04/04/25 16:20> Prescriptions: No Action atorvastatin 40 mg tablet 40 mg PO QPM aspirin 81 mg tablet,delayed release (DR/EC) 81 mg PO BID acetaminophen [Mapap (acetaminophen)] 500 mg capsule PO <Audra Tao MD - Last Filed: 04/04/25 16:20> Follow Up/Referrals: Sully Mcrae DO [Primary Care Provider, Family Practice] <Audra Tao MD - Last Filed: 04/04/25 16:20> Stand Alone Forms: My[facility] Info Instructions <Audra Tao MD - Last Filed: 04/04/25 16:20>
--- NOTE | 2025-04-04 15:33 | CRLHL7_ITS ---
For Patients: As a result of the Cures Act, medical imaging exams and procedure reports are released immediately into your electronic medical record. You may view this report before your referring provider. If you have questions, please contact your health care provider. INDICATION: : Chest pain COMPARISON: Chest radiograph on September 20, 2021 and priors TECHNIQUE: One view(s) of the chest FINDINGS: The cardiomediastinal silhouette and pulmonary vasculature are unremarkable. There is no focal airspace consolidation, pleural effusion, or pneumothorax. No displaced fractures. IMPRESSION: No acute cardiopulmonary process. Dictated by Farrukh Thompson MD @ 04/04/2025 3:53:20 PM (Electronically Signed)
[2025-04-04 16:04] LABS: Hematocrit* 40.2 % (33.0-51.0); Hemoglobin* 12.9 gm/dL (12.0-16.0); Immature Granulocytes Abs Auto 0.02 K/uL (0.00-0.30); Immature Granulocytes Pct Auto 0.2 %; Lymphocytes Absolute Auto 1.80 K/uL (0.90-2.90); Mean Corpuscular HGB Conc 32 gm/dL (32-36); Mean Corpuscular Hemoglobin 30 pg (26-34); Mean Corpuscular Volume 94 fL (80-100); RDW Coefficient of Variation % 12.9 % (11.5-15.5); Red Blood Count* 4.28 m/uL (4.00-5.20); White Blood Count* 8.97 K/uL (4.50-11.00)
[2025-04-04 16:06] LABS: Albumin* 4.0 g/dL (3.3-5.0); Chloride* 103 mmol/L (96-114); Sodium* 136 mmol/L (135-149)
[2025-04-04 16:07] LABS: Potassium* 4.3 mmol/L (3.6-5.1)
[2025-04-04 16:08] LABS: Troponin, Point-of-Care* 0.00 ng/ml (0.01-0.04)
[2025-04-04 16:09] LABS: Blood Urea Nitrogen* 15 mg/dL (7-30); Creatinine* 0.9 mg/dL (0.5-1.5); Est. Creatinine Clearance* 34.91; Estimated Glomerular Filt Rate 67 ml/min
[2025-04-04 16:10] LABS: Alanine Aminotransferase* 19 U/L (4-35); Alkaline Phosphatase* 83 U/L (40-150); Anion Gap 4 mEq/L (7-15); Aspartate Amino Transferase* 28 U/L (12-35); Bilirubin Total* 0.2 mg/dL (0.1-1.5); Calcium* 9.3 mg/dL (8.4-10.6); Carbon Dioxide* 29 mmol/L (20-32); Glucose* 108 mg/dL (60-115); Total Protein* 7.2 g/dL (6.0-8.3)
[2025-04-04 16:12] LABS: D Dimer Quantitative* 0.56 ug/ml (0.00-0.50)
[2025-04-04 16:15] LABS: Slide Review Reflex No
[2025-04-04 16:40] LABS: PCR FLU A Negative PCR FLU A (Negative); PCR FLU B Negative PCR FLU B (Negative); PCR RSV Negative PCR RSV (Negative); SARS PCR* Negative SARS-CoV-2 (Negative)
[2025-04-04 17:03] VITALS: BP 132/78; PULSE 71; RESP 16; O2SAT 97
[2025-04-04 18:23] LABS: Troponin, Point-of-Care* 0.01 ng/ml (0.01-0.04)
== END 2025-04-04 18:41 | disposition home or self-care (01) ==
PROVIDERS: Emergency Provider Family Medicine; PCP Family Medicine
DX: R07.9 Chest pain, unspecified (principal)
CPT/HCPCS: 36415; 71045; 80053; 83735; 84484; 85025; 85379; 86140; 87631; 93005; 94761; 99284